=== PATIENT | male | born 1985 | race American Indian/Alaskan Native ===

== ENCOUNTER 2020-09-11 08:44 | Inpatient (IN) | payer OTHER, SELFPAY ==
--- NOTE | 2020-09-11 09:49 | XRay Report ---
CHEST 2 VIEWS INDICATION / CLINICAL INFORMATION: Chest Pain. COMPARISON: None available. FINDINGS: SUPPORT DEVICES: None. HEART / MEDIASTINUM: No significant abnormality. LUNGS / PLEURA: There is patchy airspace opacity in the right lower lung. Small to moderate right ple ural effusion. The left lung is clear. No pneumothorax. ADDITIONAL FINDINGS: No significant additional findings. IMPRESSION: 1. Patchy airspace opacity in the right lower lung worrisome for pneumonia in the appropriate clinica l setting. Small to moderate right pleural effusion. Signer Name: Yadira Ridley MD Signed: 09/11/2020 9:45 AM Workstation Name: [id number]
[2020-09-11 10:24] LABS: Basophils # (Auto) 0.1 K/mm3 (0.0-0.1); Basophils % (Auto) 0.7 % (0.0-1.8); Eosinophils # (Auto) 0.1 K/mm3 (0.0-0.4); Eosinophils % (Auto) 1.2 % (0.0-4.3); Lymphocytes # (Auto) 1.7 K/mm3 (1.2-5.4); Lymphocytes % (Auto) 24.1 % (13.4-35.0); Mean Corpuscular HGB Conc 35 % (32-34); Mean Corpuscular Volume 97 fl (84-94); Monocytes # (Auto) 0.5 K/mm3 (0.0-0.8); Monocytes % (Auto) 6.9 % (0.0-7.3); Platelet Count 117 K/mm3 (140-440); Red Cell Distribution Width 13.6 % (13.2-15.2)
[2020-09-11 10:41] LABS: Albumin 4.1 g/dL (3.9-5); Calcium 8.9 mg/dL (8.4-10.2)
[2020-09-11] MEDS ORDERED: ONDANSETRON 4 MG/2 ML INJ IV ONE (11:11)
[2020-09-11] MEDS ORDERED: FAMOTIDINE 20 MG/2 ML INJ IV ONE (11:11)
[2020-09-11] MEDS ORDERED: AZITHROMYCIN 500 MG in SODIUM CHLORIDE 0.9% 250ML 250 ML IV ONE (11:12)
[2020-09-11] MEDS ORDERED: cefTRIAXone/NS 2 GM/100 ML 2 GM/100 ML BAG IV ONE (11:12)
[2020-09-11] MEDS ORDERED: SODIUM BICARB 8.4% 50 MEQ/50 ML SYRINGE IV ONE (11:17)
[2020-09-11] MEDS ORDERED: INSULIN REGULAR, HUMAN 100 UNIT/ML 3ML VIAL IV ONE (11:17)
[2020-09-11] MEDS ORDERED: DEXTROSE 50% IN WATER (25GM) 50 ML SYRINGE IV ONE (11:17)
--- NOTE | 2020-09-11 11:30 | Emergency Department Report ---
ED General Adult HPI - General Chief complaint: Dyspnea/Respdistress Stated complaint: SOB Time Seen by Provider: 09/11/20 11:06 Source: patient, EMS Mode of arrival: Wheelchair Limitations: No Limitations - History of Present Illness Initial comments: Patient is a 35-year-old F Latvian male with a past medical history of hypertension and renal insufficiency who has a normal creatinine of 6 who is presenting with cough nausea vomiting. Patient states cough is dry nonproductive. Also had vomiting for the last 4 days. Denies diarrhea. States he has some chills and mild body aches as well. Patient has no known exposures to COVID-19. Associated Symptoms: cough, fever/chills, malaise, nausea/vomiting, shortness of breath. denies: confusion, chest pain, diaphoresis, rash, seizure, syncope, weakness - Related Data Allergies Allergy/AdvReac Type Severity Reaction Status Date / Time No Known Allergies Allergy Verified 09/11/20 11:14 ED Review of Systems ROS: Stated complaint: SOB Other details as noted in HPI Comment: All other systems reviewed and negative ED Past Medical Hx - Past Medical History Previous Medical History?: Yes Hx Hypertension: Yes Additional medical history: Chronic Kidney disease. High creatinine - Surgical History Past Surgical History?: No - Social History Smoking Status: Current Some Day Smoker Substance Use Type: Alcohol, Marijuana ED Physical Exam - General Limitations: No Limitations General appearance: alert, in no apparent distress - Head Head exam: Present: atraumatic, normocephalic - Eye Eye exam: Present: normal appearance - ENT ENT exam: Present: normal orophraynx, mucous membranes moist - Neck Neck exam: Present: normal inspection - Respiratory Respiratory exam: Present: rhonchi. Absent: normal lung sounds bilaterally, respiratory distress, wheezes, rales - Cardiovascular Cardiovascular Exam: Present: regular rate, normal rhythm, normal heart sounds. Absent: systolic murmur, diastolic murmur, rubs, gallop - GI/Abdominal GI/Abdominal exam: Present: soft, normal bowel sounds. Absent: distended, tenderness, guarding, rebound - Rectal Rectal exam: Present: deferred - Extremities Exam Extremities exam: Present: normal inspection - Back Exam Back exam: Present: normal inspection - Neurological Exam Neurological exam: Present: alert, oriented X3 - Psychiatric Psychiatric exam: Present: normal affect, normal mood - Skin Skin exam: Present: warm, dry, intact, normal color. Absent: rash ED Course Vital Signs 09/11/20 09:01 Temperature 97.3 F L Pulse Rate 95 H Respiratory 16 Rate Blood Pressure 156/100 O2 Sat by Pulse 98 Oximetry ED Medical Decision Making - Lab Data Result diagrams: 09/11/20 09:22 09/11/20 09:22 Lab Results 09/11/20 09/11/20 Range/Units 09:22 09:22 WBC 7.0 (4.5-11.0) K/mm3 RBC 1.72 L (3.65-5.03) M/mm3 Hgb 5.9 L* (11.8-15.2) gm/dl Hct 16.8 L* (35.5-45.6) % MCV 97 H (84-94) fl MCH 34 H (28-32) pg MCHC 35 H (32-34) % RDW 13.6 (13.2-15.2) % Plt Count 117 L (140-440) K/mm3 Lymph % (Auto) 24.1 (13.4-35.0) % [place] % (Auto) 6.9 (0.0-7.3) % Eos % (Auto) 1.2 (0.0-4.3) % Baso % (Auto) 0.7 (0.0-1.8) % Lymph # (Auto) 1.7 (1.2-5.4) K/mm3 [place] # (Auto) 0.5 (0.0-0.8) K/mm3 Eos # (Auto) 0.1 (0.0-0.4) K/mm3 Baso # (Auto) 0.1 (0.0-0.1) K/mm3 Seg Neutrophils % 67.1 (40.0-70.0) % Seg Neutrophils # 4.7 (1.8-7.7) K/mm3 Sodium 136 L (137-145) mmol/L Potassium 6.0 H (3.6-5.0) mmol/L Chloride 96.8 L (98-107) mmol/L Carbon Dioxide 15 L (22-30) mmol/L Anion Gap 30 mmol/L BUN 109 H (9-20) mg/dL Creatinine 36.1 H (0.8-1.3) mg/dL Estimated GFR 1 ml/min BUN/Creatinine Ratio 3 % Glucose 88 (75-100) mg/dL Calcium 8.9 (8.4-10.2) mg/dL Total Bilirubin 0.50 (0.1-1.2) mg/dL AST 15 (5-40) units/L ALT 6 L (7-56) units/L Alkaline Phosphatase 56 (35-129) units/L Total Protein 8.4 H (6.3-8.2) g/dL Albumin 4.1 (3.9-5) g/dL Albumin/Globulin Ratio 1.0 % Lipase 58 (13-60) units/L - EKG Data -: EKG Interpreted by Md - EKG Data 09/11/20 EKG shows a sinus rhythm rate of 93. [place] is normal intervals are normal. Appears to be peak T waves in the lateral leads. No ST segment elevation or depression. Time of interpretation is 913 - Radiology Data [facility] [address] [place] [address] XRay Report Signed Patient: RJ MILLER MR#: [id number] : 1985 Acct:[id number] Age/Sex: 35 / M ADM Date: 09/11/20 Loc: ED Attending Dr: Ordering Physician: RADHIKA SAUL MD Date of Service: 09/11/20 Procedure(s): XR chest routine 2V Accession Number(s): [id number] cc: ED MD KG Fluoro Time In Minutes: CHEST 2 VIEWS INDICATION / CLINICAL INFORMATION: Chest Pain. COMPARISON: None available. FINDINGS: SUPPORT DEVICES: None. HEART / MEDIASTINUM: No significant abnormality. LUNGS / PLEURA: There is patchy airspace opacity in the right lower lung. Small to moderate right pleural effusion. The left lung is clear. No pneumothorax. ADDITIONAL FINDINGS: No significant additional findings. IMPRESSION: 1. Patchy airspace opacity in the right lower lung worrisome for pneumonia in the appropriate clinical setting. Small to moderate right pleural effusion. Signer Name: Yadira Ridley MD Signed: 09/11/2020 9:45 AM Workstation Name: [id number] - Medical Decision Making Patient is a 35-year-old F Latvian male who is presenting with cough shortness of breath with nausea vomiting. Patient has been unable to keep anything down has had decreased urination over the last several days. Chest x-ray is consist ent with infiltrate and pneumonia. Given the recent COVID-19 pandemic patient will have COVID-19 testing done. Patient was placed in isolation. Patient also has acute worsening of his renal function. Patient is not on dialysis but has a GFR of 1 at this time. . Patient is hemoglobin is under 7 is likely secondary to his renal disease. A unit of packed red blood cells will be given to the pat ient hemoglobin be reassessed. Nephrology has been consulted. Patient will be admitted to the hospitalist service Critical Care Time: Yes (40) Critical care attestation.: If time is entered above; I have spent that time in minutes in the direct care of this critically ill patient, excluding procedure time. ED Disposition Clinical Impression: Hyperkalemia, Lactic acidosis, Suspected COVID-19 virus infection Acute renal failure Qualifiers: Acute renal failure type: unspecified Qualified Code(s): N17.9 - Acute kidney failure, unspecified Pneumonia Qualifiers: Pneumonia type: due to unspecified organism Laterality: right Lung location: lower lobe of lung Qualified Code(s): J18.9 - Pneumonia, unspecified organism Disposition: OP ADMIT IP TO THIS HOSP Is pt being admited?: Yes Does the pt Need Aspirin: No Condition: Stable Instructions: Bacterial Pneumonia (ED) Time of Disposition: 12:16
[2020-09-11 11:34] LABS: Red Blood Count 1.72 M/mm3 (3.65-5.03)
[2020-09-11 11:36] LABS: Hemoglobin 5.9 gm/dl (11.8-15.2)
[2020-09-11 11:37] LABS: Hematocrit 16.8 % (35.5-45.6)
[2020-09-11] MEDS ORDERED: INSULIN REGULAR, HUMAN 100 UNITS/1 ML ONE (11:49)
[2020-09-11] MEDS ORDERED: SODIUM CHLORIDE 0.9% 500 ML 500 ML IV ONE (12:05)
[2020-09-11 12:51] LABS: C-Reactive Protein 0.2 mg/dL (0.00-1.30)
[2020-09-11 13:36] LABS: Bacteria,Urine 1+ /HPF (Negative); Bilirubin,Urine NEG (Negative); Blood,Urine SM (Negative); Color,Urine Yellow (Yellow); Urobilinogen,Urine < 2.0 mg/dL (<2.0)
[2020-09-11 13:37] LABS: Protein,Urine >500 mg/dL (Negative)
--- NOTE | 2020-09-11 14:24 | History and Physical Report ---
History of Present Illness Date of examination: 09/11/20 Date of admission: 09/11/20 12:30 Chief complaint: cough/nausea/vomiting History of present illness: Patient is a 35-year-old black male with a past medical history of hypertension, HIV and CKD with last known creatinine of 6 presenting today with h/p cough nausea vomiting for last few days. Patient states cough is dry and nonproductive. Also had vomiting for the last 4 days but Denies diarrhea. States he is out of his HIV meds for a month. He was hospitalized at [place] early this year and was told he has CKD, but he did not do any further f/u after that. He also endorse some chills and mild body aches as well. Patient has no known exposures to COVID-19. In the ER he noted with Hb 5.9, K 6.0, BUN/Cr - 109/36 CXR showed Patchy airspace opacity in the right lower Nephrology was consulted in the ER, placed on COVID19 protocol and called for admission. Past Medical Hx - Past Medical History Hx Hypertension: Yes Additional medical history: Chronic Kidney disease. HIV - Surgical History Past Surgical History?: No - Family History: GM with h/o HD - Social History Smoking Status: Current Some Day Smoker Substance Use Type: Alcohol, Marijuana Review of System: Constitutional: + fever, + chills, no weight loss Ears, eyes, nose, mouth and throat: no nasal congestion, no nasal discharge, no sinus pressure, no vision change, no red eye. Neck: No neck pain or rigidity. Cardiovascular: No chest pain, no orthopnea, no palpitations, no leg swelling Respiratory: + shortness of breath, no cough, no congestion, no wheezing Gastrointestinal: no abdominal pain, + nausea, +vomiting Genitourinary : no dysuria, no hematuria Musculoskeletal: no joint swelling or muscle ache Integumentary: no rash, no pruritis Neurological: no parathesias, no numbness, no tingling Endocrine: no cold or heat intolerance, no polyuria or polydipsia Hematologic/Lymphatic: no easy bruising, no easy bleeding, no gland swelling Allergic/Immunologic: no urticaria, no angioedema. Medications and Allergies Allergies Allergy/AdvReac Type Severity Reaction Status Date / Time No Known Allergies Allergy Verified 09/11/20 11:14 Home Medications Medication Instructions Recorded Confirmed Last Taken Type Descovy 200-25 mg (Nf) 25 - 200 mg PO DAILY 09/12/20 09/12/20 Unknown History Tivicay 50 mg PO DAILY 09/12/20 09/12/20 Unknown History amLODIPine 10 mg PO DAILY 09/12/20 09/12/20 Unknown History Active Meds: Active Medications Sodium Bicarbonate 150 meq/ (Dextrose) 1,150 mls @ 42 mls/hr IV DIRECT MARIAM Exam - Physical Exam Narrative exam: GENERAL: well-developed and well-nourished black male lying on bed appeared to be in no discomfort. HEENT: Normocephalic. Atraumatic. No conjunctival congestion or icterus. Patient has moist mucous membranes. NECK: Supple. Trachea midline. CHEST/LUNGS: Clear to auscultated bilaterally, breathing nonlabored. No wheezes crackles or rhonchi. HEART/CARDIOVASCULAR: Regular in rate and rhythm. S1 and S2 positive. ABDOMEN: Abdomen is soft, nontender. Patient has normal bowel sounds. SKIN: There is no rash. Warm and dry. NEURO: No focal motor deficit. Follows command. MUSCULOSKELETAL: No joint effusion or tenderness. EXTRIMITY: No edema, no cyanosis or clubbing. PSYCH: Cooperative. - Constitutional Vitals: Temp Pulse Resp BP Pulse Ox 97.3 F L 95 H 16 156/100 98 09/11/20 09:01 09/11/20 09:01 09/11/20 09:01 09/11/20 09:01 09/11/20 09:01 - EENT ENT: no oropharyngeal erythema Results - Labs CBC & Chem 7: 09/12/20 07:34 09/12/20 07:34 Labs: Abnormal lab results 09/11/20 09/11/20 09/11/20 Range/Units 09:22 09:22 11:31 RBC 1.72 L (3.65-5.03) M/mm3 Hgb 5.9 L* (11.8-15.2) gm/dl Hct 16.8 L* (35.5-45.6) % MCV 97 H (84-94) fl MCH 34 H (28-32) pg MCHC 35 H (32-34) % Plt Count 117 L (140-440) K/mm3 D-Dimer (0-234) ng/mlDDU Sodium 136 L (137-145) mmol/L Potassium 6.0 H 6.8 H* (3.6-5.0) mmol/L Chloride 96.8 L (98-107) mmol/L Carbon Dioxide 15 L (22-30) mmol/L BUN 109 H (9-20) mg/dL Creatinine 36.1 H (0.8-1.3) mg/dL Ferritin (30.0-300.0) ng/mL ALT 6 L (7-56) units/L Lactate Dehydrogenase (91-180) units/L Total Protein 8.4 H (6.3-8.2) g/dL 09/11/20 09/11/20 09/11/20 Range/Units 11:58 11:58 11:58 RBC (3.65-5.03) M/mm3 Hgb (11.8-15.2) gm/dl Hct (35.5-45.6) % MCV (84-94) fl MCH (28-32) pg MCHC (32-34) % Plt Count (140-440) K/mm3 D-Dimer 991.44 H (0-234) ng/mlDDU Sodium (137-145) mmol/L Potassium (3.6-5.0) mmol/L Chloride (98-107) mmol/L Carbon Dioxide (22-30) mmol/L BUN (9-20) mg/dL Creatinine (0.8-1.3) mg/dL Ferritin 481.7 H (30.0-300.0) ng/mL ALT (7-56) units/L Lactate Dehydrogenase 345 H (91-180) units/L Total Protein (6.3-8.2) g/dL Assessment and Plan Possible COVID-19 PNA/PUI -Placed on empiric antibiotic, ordered for COVID-19 test -Follow inflammatory markers CXR: 1. Patchy airspace opacity in the right lower lung worrisome for pneumonia in the appropriate clinical setting. Small to moderate right pleural effusion. Acute on chronic renal failure possibly ATN -Consult renal, start on bicarbonate drip, renal ultrasound -Monitor renal function, may need to start on hemodialysis -Follow nephrology recommendation -Avoid nephrotoxin, follow renal function Severe metabolic acidosis -Start on bicarbonate drip, monitor BMP Severe hyperkalemia -Status post hyperkalemia cocktail given in the ER -Repeat potassium still 6.8 - Start on bicarbonate drip, kayexalate EKG shows a sinus rhythm rate of 93. [place] is normal intervals are normal. Appears to be peak T waves in the lateral leads. No ST segment elevation or depression. Severe anemia,Hb 5.9 -Follow H&H, ordered 1 unit of packed RBC in the ER -Order stool for occult blood Nausea vomiting -Could be for hyper uremia and renal failure -Zofran as needed HIV: not on medications for a month - will consult ID DVT prophylaxis, SCD
[2020-09-11] MEDS ORDERED: ONDANSETRON 4 MG/2 ML INJ IV PRN (14:29)
[2020-09-11] MEDS ORDERED: ACETAMINOPHEN 325 MG TAB PO PRN (14:29)
[2020-09-11] MEDS ORDERED: oxyCODONE /ACETAMINOPHEN 5-325MG TAB PO PRN (14:29)
[2020-09-11] MEDS ORDERED: SODIUM POLYSTYRENE 15 GM/60 ML ORAL LIQD PO PRN (14:30)
[2020-09-11] MEDS: cefTRIAXone/NS 2 GM/100 ML 2 GM/100 ML BAG IV SCH (14:35)
--- NOTE | 2020-09-11 14:48 | History and Physical Report ---
History of Present Illness Date of admission: 09/11/20 12:30 Medications and Allergies Allergies Allergy/AdvReac Type Severity Reaction Status Date / Time No Known Allergies Allergy Verified 09/11/20 11:14 Active Meds: Active Medications Acetaminophen (Tylenol) 650 mg PO Q4H PRN PRN Reason: Pain MILD(1-3)/Fever >100.5/MCNEAL Hydralazine HCl (Apresoline) 5 mg IV Q30MIN PRN PRN Reason: Hypertension Sodium Bicarbonate 75 meq/ (Dextrose) 1,075 mls @ 75 mls/hr IV DIRECT MARIAM Ceftriaxone Sodium (Rocephin/Ns 2 Gm/100 Ml) 2 gm in 100 mls @ 100 mls/hr IV Q24H MARIAM Ondansetron HCl (Zofran) 4 mg IV Q8H PRN PRN Reason: Nausea And Vomiting Oxycodone/Acetaminophen (Percocet 5/325) 1 tab PO Q6H PRN PRN Reason: Pain, Moderate (4-6) Sodium Chloride (Sodium Chloride Flush Syringe 10 Ml) 10 ml IV BID MARIAM Sodium Chloride (Sodium Chloride Flush Syringe 10 Ml) 10 ml IV PRN PRN PRN Reason: LINE FLUSH Sodium Polystyrene Sulfonate (Kionex) 60 gm PO ONCE ONE Stop: 09/11/20 15:01 Sodium Polystyrene Sulfonate (Kionex) 15 gm PO Q6HR PRN PRN Reason: Hyperkalemia Exam - Constitutional Vitals: Temp Pulse Resp BP Pulse Ox 97.3 F L 95 H 16 156/100 98 09/11/20 09:01 09/11/20 09:01 09/11/20 09:01 09/11/20 09:01 09/11/20 09:01 Results - Labs CBC & Chem 7: 09/11/20 09:22 09/11/20 11:58 Labs: Abnormal lab results 09/11/20 09/11/20 09/11/20 Range/Units 09:22 09:22 11:31 RBC 1.72 L (3.65-5.03) M/mm3 Hgb 5.9 L* (11.8-15.2) gm/dl Hct 16.8 L* (35.5-45.6) % MCV 97 H (84-94) fl MCH 34 H (28-32) pg MCHC 35 H (32-34) % Plt Count 117 L (140-440) K/mm3 D-Dimer (0-234) ng/mlDDU Sodium 136 L (137-145) mmol/L Potassium 6.0 H 6.8 H* (3.6-5.0) mmol/L Chloride 96.8 L (98-107) mmol/L Carbon Dioxide 15 L (22-30) mmol/L BUN 109 H (9-20) mg/dL Creatinine 36.1 H (0.8-1.3) mg/dL Ferritin (30.0-300.0) ng/mL ALT 6 L (7-56) units/L Lactate Dehydrogenase (91-180) units/L Total Protein 8.4 H (6.3-8.2) g/dL 09/11/20 09/11/20 09/11/20 Range/Units 11:58 11:58 11:58 RBC (3.65-5.03) M/mm3 Hgb (11.8-15.2) gm/dl Hct (35.5-45.6) % MCV (84-94) fl MCH (28-32) pg MCHC (32-34) % Plt Count (140-440) K/mm3 D-Dimer 991.44 H (0-234) ng/mlDDU Sodium (137-145) mmol/L Potassium (3.6-5.0) mmol/L Chloride (98-107) mmol/L Carbon Dioxide (22-30) mmol/L BUN (9-20) mg/dL Creatinine (0.8-1.3) mg/dL Ferritin 481.7 H (30.0-300.0) ng/mL ALT (7-56) units/L Lactate Dehydrogenase 345 H (91-180) units/L Total Protein (6.3-8.2) g/dL
[2020-09-11] MEDS ORDERED: SODIUM BICARBONATE 150 MEQ in DEXTROSE 5% IN WATER 1,000 ML IV SCH (15:00)
[2020-09-11] MEDS ORDERED: SODIUM POLYSTYRENE 15 GM/60 ML ORAL LIQD PO ONE (15:00)
[2020-09-11] MEDS ORDERED: SODIUM BICARBONATE 75 MEQ in DEXTROSE 5% IN WATER 1,000 ML IV SCH (15:00)
[2020-09-11] MEDS ORDERED: HYDROmorphone 1 MG/1 ML INJ IV ONE (15:10)
[2020-09-11] MEDS ORDERED: SODIUM POLYSTYRENE 15 GM/60 ML ORAL LIQD ONE (15:14)
[2020-09-11] MEDS ORDERED: HYDROmorphone 1 MG/1 ML INJ ONE (15:15)
--- NOTE | 2020-09-11 16:03 | Ultrasound Report ---
ULTRASOUND RENAL INDICATION: acute renal failure. COMPARISON: No relevant prior imaging study available. FINDINGS: RIGHT KIDNEY: Size: 9.4 cm. Echogenicity: Increased. Cortical thickness: Normal. Stones: None. Hydronephrosis: None. Cyst or mass: None. LEFT KIDNEY: Size: 9 cm. Echogenicity: Increased. Cortical thickness: Normal. Stones: None. Hydronephrosis: None. Cyst or mass: There is a 2.3 x 1.7 x 1.4 cm mixed echogenicity nodule in the upper pole of the left k idney. Urinary Bladder: No significant abnormality. Free Fluid: None. Additional Findings: None. IMPRESSION 1. Kidneys are increased in echogenicity characteristic of medical renal disease. 2. There is a mixed echogenicity nodule in the left kidney measuring up to 2.3 cm in diameter. This m ay represent a complex or hemorrhagic cyst. This could represent a fat-containing lesion such as no omyolipoma. This can be further evaluated with CT imaging on a nonemergent basis.. Signer Name: Rad Rodríguez MD Signed: 09/11/2020 3:59 PM Workstation Name: [id number]
--- NOTE | 2020-09-11 16:38 | Consultation ---
History of Present Illness - Reason for Consult Consult date: 09/11/20 acute renal failure, chronic renal failure - History of Present Illness This is a 35 year old man with CKD, HTN who presents with vomiting, weakness. Found to have creatinine 36. Per patient, follows with Dr. Norbert Treadwell at [place] [facility] but has not seen him in a long time. Notes that his last creatinine was around a 6 or 7, and CKD was thought to be due to HTN. No biopsy done per patient. For past 3 days, he notes poor appetite, cough, and vomiting which is what led him to ED. Denies any urinary abnormalities, dyspnea, edema, headaches. He states that he just feels like he has a bad cold. Past History Past Medical History: hypertension, other (CKD) Past Surgical History: No surgical history Social history: no significant social history Family history: no significant family history Medications and Allergies Allergies Allergy/AdvReac Type Severity Reaction Status Date / Time No Known Allergies Allergy Verified 09/11/20 11:14 Active Meds: Active Medications Acetaminophen (Tylenol) 650 mg PO Q4H PRN PRN Reason: Pain MILD(1-3)/Fever >100.5/MCNEAL Hydralazine HCl (Apresoline) 5 mg IV Q30MIN PRN PRN Reason: Hypertension Sodium Bicarbonate 75 meq/ (Dextrose) 1,075 mls @ 75 mls/hr IV DIRECT MARIAM Ceftriaxone Sodium (Rocephin/Ns 2 Gm/100 Ml) 2 gm in 100 mls @ 100 mls/hr IV Q24H [facility] Last Admin: 09/11/20 14:35 Dose: 100 mls/hr Documented by: Ondansetron HCl (Zofran) 4 mg IV Q8H PRN PRN Reason: Nausea And Vomiting Oxycodone/Acetaminophen (Percocet 5/325) 1 tab PO Q6H PRN PRN Reason: Pain, Moderate (4-6) Pantoprazole Sodium (Protonix) 40 mg IV BID MARIAM Sodium Chloride (Sodium Chloride Flush Syringe 10 Ml) 10 ml IV BID [facility] Last Admin: 09/11/20 15:15 Dose: 10 ml Documented by: Sodium Chloride (Sodium Chloride Flush Syringe 10 Ml) 10 ml IV PRN PRN PRN Reason: LINE FLUSH Sodium Polystyrene Sulfonate (Kionex) 15 gm PO Q6HR PRN PRN Reason: Hyperkalemia Review of Systems All systems: negative (as per HPI) Exam - Vital Signs Vital signs: Vital Signs Temp Pulse Resp BP Pulse Ox 97.3 F L 95 H 16 156/100 98 09/11/20 09:01 09/11/20 09:01 09/11/20 09:01 09/11/20 09:01 09/11/20 09:01 - Physical Exam Narrative exam: Constitutional: no acute distress Head: NC/AT Neck: supple Lungs: clear to auscultation CV: RRR, no M/R/G Abdomen: soft, non-tender, bowel sounds present Back: nontender Extremities: no edema, pulses WNL Skin: intact Neuro: no focal deficits, alert and oriented x4 Results - Lab Results 09/11/20 09:22 09/11/20 11:58 Most recent lab results Calcium 8.9 mg/dL (8.4-10.2) 09/11/20 09:22 Assessment and Plan This is a 35 year old man who presents with MARNI, electrolyte abnormalities. # MARNI on CKD 5: creatinine very high at 36. Patient clinically appears fairly well, but discussed at length today (>30 minutes) that it is very likely that he has progressed to ESRD/kidney failure given his reported poor baseline, despite any acute illnesses that may have lead to tubular injury. Discussed need for HD at length, but agreed that we shall try medical management with IVF, blood tranfusions, etc and perform serologic workup - serologies ordered, urinalysis reviewed which shows blood and protein. Qu antify UP/C - ultrasound reviewed, cyst noted, would recommend CT for further evaluation if able while inpatient. No acute obstruction noted - daily labs - renally dose meds - avoid nephrotoxins - renal diet - hold HD for now, but suspect will need in next 24 hours, will consult vascular when needed for access placement. Did discuss need for dialysis access with patient, patient would like to hold off for now and allow for supportive care - consider renal biopsy, but suspect would be of less utility given severity of CKD progression # Anemia: last hemoglobin 5.9, PRBCs today, will likely need ESAs, iron # Acidosis: likely in renal failure, start HCO3 gtt # Hyperkalemia: s/p medical measures, agree with HCO3 gtt. HD if not improving. No EKG changes # HTN: BP reasonable # Secondary Hyperparathyroidism: PTH 580, consistent with ESRD. Check phos, start binders as needed # Possible COVID-19 PNA/PUI: care per primary
[2020-09-11] MEDS ORDERED: PANTOPRAZOLE 40 MG INJ IV SCH (22:00)
[2020-09-11] MEDS ORDERED: cefTRIAXone/NS 1 GM/50 ML 1 GM/50 ML BAG IV SCH (22:00)
[2020-09-12] MEDS ORDERED: SODIUM CHLORIDE 0.9% 250ML 250 ML IV ONE (00:29)
[2020-09-12] MEDS ORDERED: SODIUM CHLORIDE 0.9% 250ML 250 ML ONE (00:43)
[2020-09-12 04:37] LABS: Creatinine,Urine 123.7 mg/dL (0.1-20.0)
[2020-09-12 04:50] LABS: Protein/Creatinine Ratio,Urine 4.8
[2020-09-12 09:38] LABS: Calcium 8.6 mg/dL (8.4-10.2)
[2020-09-12] MEDS: PANTOPRAZOLE 40 MG INJ IV SCH ×2 (09:38→22:14)
[2020-09-12 09:39] LABS: Basophils % (Auto) 0.6 % (0.0-1.8); Eosinophils # (Auto) 0.1 K/mm3 (0.0-0.4); Eosinophils % (Auto) 1.7 % (0.0-4.3); Hemoglobin 6.7 gm/dl (11.8-15.2); Lymphocytes # (Auto) 1.5 K/mm3 (1.2-5.4); Lymphocytes % (Auto) 24.4 % (13.4-35.0); Mean Corpuscular HGB Conc 34 % (32-34); Mean Corpuscular Volume 98 fl (84-94); Monocytes # (Auto) 0.6 K/mm3 (0.0-0.8); Monocytes % (Auto) 9.1 % (0.0-7.3); Platelet Count 102 K/mm3 (140-440); Red Blood Count 1.98 M/mm3 (3.65-5.03); Red Cell Distribution Width 14.4 % (13.2-15.2)
--- NOTE | 2020-09-12 09:51 | Progress Note ---
Assessment and Plan This is a 35 year old man who presents with MARNI, electrolyte abnormalities. # MARNI on CKD 5: creatinine very high at 36, 34 this AM. Patient clinically appears fairly well, but discussed at length again today face to face (>30 minutes) that it is very likely that he has progressed to ESRD/kidney failure given his reported poor baseline, despite any acute illnesses that may have lead to tubular injury. Discussed need for HD at length, but agreed that we shall continue medical management with IVF, blood tranfusions, etc and perform serologic workup - serologies ordered, urinalysis reviewed which shows blood and protein. Notable proteinuria of 4.8g - ultrasound reviewed, cyst noted, will check CT for further evaluation given he maturia. No acute obstruction noted - daily labs - renally dose meds - avoid nephrotoxins - renal diet - hold HD for now, but suspect will need in next 24 hours, will consult vascular when needed for access placement. Did discuss need for dialysis access with patient, patient would like to hold off for now and allow for supportive care - consider renal biopsy, but suspect would be of less utility given severity of CKD progression # Anemia: last hemoglobin 5.9->6.7, s/p 1u PRBCs, will likely need ESAs, iron # Hematuria: visible hematuria noted today, will check CT as noted above, will need urology consult # Acidosis: likely in renal failure, improving on HCO3 # Hyperkalemia: s/p medical measures, stable. HD if not improving. No EKG changes # HTN: BP reasonable # Secondary Hyperparathyroidism: PTH 580, P high, consistent with ESRD. Will start binders as needed, renvela ordered # Possible COVID-19 PNA/PUI: care per primary Subjective Date of service: 09/12/20 Interval history: Patient noting bleeding from penis this AM, has never had this happen before. Notes that after blood transfusion began feeling "off" but better now Objective - Exam Narrative Exam: Constitutional: no acute distress Head: NC/AT Neck: supple Lungs: clear to auscultation CV: RRR, no M/R/G Abdomen: soft, non-tender, bowel sounds present Back: nontender Extremities: no edema, pulses WNL Skin: intact Neuro: no focal deficits, alert and oriented x4 - Vital Signs Vital signs: Vital Signs - 12hr 09/11/20 09/12/20 09/12/20 23:13 02:20 02:35 Temperature 98.0 F 97.5 F L 97.4 F L Pulse Rate 96 H 98 H 91 H Respiratory 20 18 18 Rate Blood Pressure 150/96 154/102 157/101 O2 Sat by Pulse 96 97 99 Oximetry 09/12/20 09/12/20 09/12/20 03:05 03:35 04:05 Temperature 97.5 F L 97.5 F L 97.6 F Pulse Rate 91 H 91 H 84 Respiratory 18 18 18 Rate Blood Pressure 154/99 158/91 155/100 O2 Sat by Pulse 99 99 99 Oximetry 09/12/20 09/12/20 09/12/20 04:35 05:05 05:35 Temperature 97.5 F L 97.6 F 97.6 F Pulse Rate 90 89 90 Respiratory 18 18 19 Rate Blood Pressure 155/99 147/97 150/90 O2 Sat by Pulse 99 99 99 Oximetry - Lab 09/12/20 07:34 09/12/20 07:34 Most recent lab results Calcium 8.6 mg/dL (8.4-10.2) 09/12/20 07:34 Phosphorus 5.80 mg/dL (2.5-4.5) H 09/12/20 07:34 Urine Creatinine 123.7 mg/dL (0.1-20.0) H 09/12/20 03:30 Urine Total Protein 594 mg/dL (5-11.8) H 09/12/20 03:30 Medications & Allergies - Medications Allergies/Adverse Reactions: Allergies No Known Allergies Allergy (Verified 09/11/20 11:14) Home Medications: Home Medications Medication Instructions Recorded Confirmed Last Taken Type Descovy 200-25 mg (Nf) 25 - 200 mg PO DAILY 09/12/20 09/12/20 Unknown History Tivicay 50 mg PO DAILY 09/12/20 09/12/20 Unknown History amLODIPine 10 mg PO DAILY 09/12/20 09/12/20 Unknown History Active Medications: Generic Name Dose Route Start Last Admin Trade Name Freq PRN Reason Stop Dose Admin Acetaminophen 650 mg 09/11/20 14:29 Tylenol PO Q4H PRN Pain MILD(1-3)/Fever >100.5/MCNEAL Hydralazine HCl 5 mg 09/11/20 14:30 Apresoline IV Q30MIN PRN Hypertension Sodium Bicarbonate 75 meq/ 1,075 mls @ 75 mls/hr 09/11/20 15:00 Dextrose IV DIRECT MARIAM Ceftriaxone Sodium 2 gm in 100 mls @ 100 mls/hr 09/11/20 15:00 09/11/20 14:35 Rocephin/Ns 2 Gm/100 Ml IV 100 mls/hr Q24H MARIAM Administration Ondansetron HCl 4 mg 09/11/20 14:29 Zofran IV Q8H PRN Nausea And Vomiting Oxycodone/Acetaminophen 1 tab 09/11/20 14:29 Percocet 5/325 PO Q6H PRN Pain, Moderate (4-6) Pantoprazole Sodium 40 mg 09/13/20 10:00 Protonix PO BID MARIAM Pantoprazole Sodium 40 mg 09/12/20 10:00 09/12/20 09:38 Protonix IV 09/12/20 23:59 40 mg BID MARIAM Administration Sodium Chloride 10 ml 09/11/20 15:00 09/12/20 09:38 Sodium Chloride Flush Syringe 10 Ml IV 10 ml BID MARIAM Administration Sodium Chloride 10 ml 09/11/20 14:29 Sodium Chloride Flush Syringe 10 Ml IV PRN PRN LINE FLUSH Sodium Polystyrene Sulfonate 15 gm 09/11/20 14:30 Kionex PO Q6HR PRN Hyperkalemia
[2020-09-12 09:54] LABS: Hematocrit 19.4 % (35.5-45.6)
[2020-09-12] MEDS ORDERED: SODIUM CHLORIDE 0.9% 500 ML 500 ML IV NR (12:07)
--- NOTE | 2020-09-12 12:43 | Cat Scan Report ---
CT ABDOMEN AND PELVIS WITHOUT CONTRAST INDICATION / CLINICAL INFORMATION: cyst vs mass noted on ultrasound, hematuria. TECHNIQUE: Axial CT images were obtained through the abdomen and pelvis without IV contrast. All CT scans at is location are performed using CT dose reduction for ALARA by means of automated exposure control. COMPARISON: None available. FINDINGS: LOWER CHEST: There are groundglass densities and areas of airspace consolidation in the lower chest. There are small bilateral pleural effusions right greater than left. LIVER: No acute abnormality. GALLBLADDER: Gallbladder appears contracted BILE DUCTS: No significant abnormality. PANCREAS: No significant abnormality. SPLEEN: No significant abnormality. ADRENALS: No significant abnormality. RIGHT KIDNEY and URETER: No significant abnormality. LEFT KIDNEY and URETER: The lesion seen in the upper pole the left kidney on the prior study is not w ell seen on this exam. There are 2 small hypodensities noted in the posterior aspect of the left kidn ey which likely correlate to the abnormality seen on ultrasound. This could represent complex partial ly hemorrhagic cyst. This does not have fat density within it and is not a typical angiomyolipoma. STOMACH and SMALL BOWEL: No significant abnormality. COLON: 1 APPENDIX: Not visualized PERITONEUM: There is a small amount of free fluid in the pelvis. No free air. No fluid collection. Th ere is mild edema in the mesentery LYMPH NODES: No significant adenopathy. AORTA and ARTERIES: No significant abnormality. IVC and VEINS: No significant abnormality. URINARY BLADDER: No significant abnormality. REPRODUCTIVE ORGANS: No significant abnormality. ADDITIONAL FINDINGS: None. SKELETAL SYSTEM: No acute abnormality IMPRESSION: 1. There are subtle hypodensities in the left kidney which appear to correspond to the abnormality se en on ultrasound. These are nonspecific and may represent complex cyst. This is not atypical angiomyo lipoma. 2. There is edema in the mesentery and some fluid along the pararenal fascia and there is some free f luid in the pelvis. This is nonspecific 3. There are small bilateral pleural effusions right greater than left. 4. There is groundglass opacity noted in the lung bases with areas of airspace consolidation which co uld represent edema and atelectasis. Possibility of pneumonia including atypical pneumonia is include d in the differential diagnosis. Signer Name: Rad Rodríguez MD Signed: 09/12/2020 12:38 PM Workstation Name: [id number]
[2020-09-12] MEDS: amLODIPine 10 MG TAB PO SCH (13:48)
[2020-09-12] MEDS: SEVELAMER CARBONATE 800 MG TAB PO SCH ×2 (13:48→21:05)
[2020-09-12] MEDS: cefTRIAXone/NS 2 GM/100 ML 2 GM/100 ML BAG IV SCH (14:01)
--- NOTE | 2020-09-12 14:15 | Progress Note ---
Assessment and Plan - Patient Problems (1) End stage renal disease Current Visit: Yes Status: Acute Plan to address problem: Dialysis as per renal team, strict I's/O, monitor urine output every shift, avoid nephrotoxic agents, Vas-Cath consult and initiation of dialysis as per nephrology team. (2) Metabolic acidosis Current Visit: Yes Status: Acute Plan to address problem: Continue current therapy. Dialysis as per renal team. (3) Hyperkalemia Current Visit: Yes Status: Acute Plan to address problem: Supportive care, no EKG changes, no muscular weakness, (4) Suspected COVID-19 virus infection Current Visit: Yes Status: Acute Plan to address problem: Coronavirus negative. Discontinue COVID-19 protocol. 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 Continue current therapy. O utpatient infectious disease service follow-up. (6) DVT prophylaxis Current Visit: Yes Status: Acute Plan to address problem: SCD to bilateral lower extremities while in bed, patient is ambulatory History Interval history: 35-year-old Male hospital day 2 with metabolic acidosis, acute kidney injury/end-stage renal disease, HIV, hyperkalemia. Patient pending initiation of hemodialysis as per renal team. Patient not currently responding with significant improvement in renal function with current therapy. Patient coronavirus PCR is negative. Patient denies fever/pain overnight. No reported nursing events. Hospitalist Physical - Constitutional Vitals: Temp Pulse Resp BP Pulse Ox 98.2 F 87 20 151/100 96 09/12/20 12:30 09/12/20 12:30 09/12/20 12:30 09/12/20 13:48 09/12/20 12:30 General appearance: Present: mild distress - EENT Eyes: Present: PERRL ENT: hearing intact - Neck Neck: Present: supple - Respiratory Respiratory effort: normal Respiratory: bilateral: CTA - Cardiovascular Rhythm: regular Heart Sounds: Present: S1 & S2 - Extremities Extremities: no ischemia Peripheral Pulses: within normal limits - Abdominal General gastrointestinal: soft, non-tender, non-distended - Integumentary Integumentary: Present: clear, dry - Psychiatric Psychiatric: appropriate mood/affect, cooperative Results - Labs CBC & Chem 7: 09/12/20 07:34 09/12/20 07:34 Labs: Laboratory Last Values WBC 6.3 K/mm3 (4.5-11.0) 09/12/20 07:34 RBC 1.98 M/mm3 (3.65-5.03) L 09/12/20 07:34 Hgb 6.7 gm/dl (11.8-15.2) L 09/12/20 07:34 Hct 19.4 % (35.5-45.6) L* 09/12/20 07:34 MCV 98 fl (84-94) H 09/12/20 07:34 MCH 34 pg (28-32) H 09/12/20 07:34 MCHC 34 % (32-34) 09/12/20 07:34 RDW 14.4 % (13.2-15.2) 09/12/20 07:34 Plt Count 102 K/mm3 (140-440) L 09/12/20 07:34 Lymph % (Auto) 24.4 % (13.4-35.0) 09/12/20 07:34 Kaufman % (Auto) 9.1 % (0.0-7.3) H 09/12/20 07:34 Eos % (Auto) 1.7 % (0.0-4.3) 09/12/20 07:34 Baso % (Auto) 0.6 % (0.0-1.8) 09/12/20 07:34 Lymph # (Auto) 1.5 K/mm3 (1.2-5.4) 09/12/20 07:34 Kaufman # (Auto) 0.6 K/mm3 (0.0-0.8) 09/12/20 07:34 Eos # (Auto) 0.1 K/mm3 (0.0-0.4) 09/12/20 07:34 Baso # (Auto) 0.0 K/mm3 (0.0-0.1) 09/12/20 07:34 Seg Neutrophils % 64.2 % (40.0-70.0) 09/12/20 07:34 Seg Neutrophils # 4.1 K/mm3 (1.8-7.7) 09/12/20 07:34 D-Dimer 991.44 ng/mlDDU (0-234) H 09/11/20 11:58 Sodium 137 mmol/L (137-145) 09/12/20 07:34 Potassium 5.5 mmol/L (3.6-5.0) H 09/12/20 07:34 Chloride 95.6 mmol/L (98-107) L 09/12/20 07:34 Carbon Dioxide 20 mmol/L (22-30) L 09/12/20 07:34 Anion Gap 27 mmol/L 09/12/20 07:34 BUN 101 mg/dL (9-20) H 09/12/20 07:34 Creatinine 34.8 mg/dL (0.8-1.3) H 09/12/20 07:34 Estimated GFR 2 ml/min 09/12/20 07:34 BUN/Creatinine Ratio 3 % 09/12/20 07:34 Glucose 90 mg/dL (75-100) 09/12/20 07:34 Calcium 8.6 mg/dL (8.4-10.2) 09/12/20 07:34 Phosphorus 5.80 mg/dL (2.5-4.5) H 09/12/20 07:34 Ferritin 481.7 ng/mL (30.0-300.0) H 09/11/20 11:58 Total Bilirubin 0.50 mg/dL (0.1-1.2) 09/11/20 09:22 AST 15 units/L (5-40) 09/11/20 09:22 ALT 6 units/L (7-56) L 09/11/20 09:22 Alkaline Phosphatase 56 units/L (35-129) 09/11/20 09:22 Lactate Dehydrogenase 345 units/L (91-180) H 09/11/20 11:58 C-Reactive Protein 0.20 mg/dL (0.00-1.30) 09/11/20 11:58 Total Protein 8.4 g/dL (6.3-8.2) H 09/11/20 09:22 Albumin 4.1 g/dL (3.9-5) 09/11/20 09:22 Albumin/Globulin Ratio 1.0 % 09/11/20 09:22 Lipase 58 units/L (13-60) 09/11/20 09:22 Procalcitonin 0.12 ng/mL (<0.15) 09/11/20 11:31 PTH Intact 538.5 pg/mL (15-65) H 09/11/20 19:01 Urine Color Yellow (Yellow) 09/11/20 12:25 Urine Turbidity Clear (Clear) 09/11/20 12:25 Urine pH 7.0 (5.0-7.0) 09/11/20 12:25 Ur Specific Paloma 1.013 (1.003-1.030) 09/11/20 12:25 Urine Protein >500 mg/dL (Negative) 09/11/20 12:25 Urine Glucose (UA) 50 mg/dL (Negative) 09/11/20 12:25 Urine Ketones Neg mg/dL (Negative) 09/11/20 12:25 Urine Blood Sm (Negative) 09/11/20 12:25 Urine Nitrite Neg (Negative) 09/11/20 12:25 Urine Bilirubin Neg (Negative) 09/11/20 12:25 Urine Urobilinogen < 2.0 mg/dL (<2.0) 09/11/20 12:25 Ur Leukocyte Esterase Neg (Negative) 09/11/20 12:25 Urine WBC (Auto) 1.0 /HPF (0.0-6.0) 09/11/20 12:25 Urine RBC (Auto) 9.0 /HPF (0.0-6.0) 09/11/20 12:25 U Epithel Cells (Auto) < 1.0 /HPF (0-13.0) 09/11/20 12:25 Urine Bacteria (Auto) 1+ /HPF (Negative) 09/11/20 12:25 Urine Creatinine 123.7 mg/dL (0.1-20.0) H 09/12/20 03:30 Protein/Creatinin Ratio 4.80 09/12/20 03:30 Urine Total Protein 594 mg/dL (5-11.8) H 09/12/20 03:30 Coronavirus (PCR) Negative (Negative) 09/12/20 Unknown Blood Type A POSITIVE 09/11/20 19: Antibody Screen Negative 09/11/20 19: Crossmatch See Detail 09/11/20 19: Microbiology: Microbiology 09/11/20 Unknown Peripheral/Venous Blood Culture - Preliminary NO GROWTH AFTER 24 HOURS 09/11/20 Unknown Peripheral/Venous Blood Culture - Preliminary NO GROWTH AFTER 24 HOURS Montoya/IV: Voiding Method Toilet IV Catheter Type [Right INT / Saline Lock Forearm] Active Medications - Current Medications Current Medications: Generic Name Dose Route Start Last Admin Trade Name Chuyq PRN Reason Stop Dose Admin Acetaminophen 650 mg 09/11/20 14:29 Tylenol PO Q4H PRN Pain MILD(1-3)/Fever >100.5/MCNEAL Amlodipine Besylate 10 mg 09/12/20 14:00 09/12/20 13:48 Amlodipine PO 10 mg QDAY MARIAM Administration Hydralazine HCl 5 mg 09/11/20 14:30 Apresoline IV Q30MIN PRN Hypertension Ceftriaxone Sodium 2 gm in 100 mls @ 100 mls/hr 09/11/20 15:00 09/12/20 14:01 Rocephin/Ns 2 Gm/100 Ml IV 100 mls/hr Q24H MARIAM Administration Sodium Chloride 500 mls @ 0 mls/hr 09/12/20 12:07 Nacl 0.9% 500 Ml IV 09/12/20 23:59 ONCE NR As Directed Ondansetron HCl 4 mg 09/11/20 14:29 Zofran IV Q8H PRN Nausea And Vomiting Oxycodone/Acetaminophen 1 tab 09/11/20 14:29 Percocet 5/325 PO Q6H PRN Pain, Moderate (4-6) Pantoprazole Sodium 40 mg 09/13/20 10:00 Protonix PO BID MARIAM Pantoprazole Sodium 40 mg 09/12/20 10:00 09/12/20 09:38 Protonix IV 09/12/20 23:59 40 mg BID MARIAM Administration Sevelamer Carbonate 2,400 mg 09/12/20 14:00 09/12/20 13:48 Renvela PO 2,400 mg TID MARIAM Administration Sodium Chloride 10 ml 09/11/20 15:00 09/12/20 09:38 Sodium Chloride Flush Syringe 10 Ml IV 10 ml BID MARIAM Administration Sodium Chloride 10 ml 09/11/20 14:29 Sodium Chloride Flush Syringe 10 Ml IV PRN PRN LINE FLUSH Sodium Polystyrene Sulfonate 15 gm 09/11/20 14:30 Kionex PO Q6HR PRN Hyperkalemia
--- NOTE | 2020-09-12 14:44 | Consultation ---
History of Present Illness - Reason for Consult Consult date: 09/12/20 HIV Requesting physician: STEVE CASAS - History of Present Illness The patient is a 35-year-old male with CKD, HIV, hypertension was admitted to the hospital with cough, nausea and vomiting. He was noted to have significant progression of his renal disease with a creatinine of 34, BUN 101. Has been seen by nephrology with plans to initiate dialysis. With regards to his HIV, patient was diagnosed about 2 years ago and started treatment with Descovy + dolutegravir at [facility], was very compliant with treatment but does not remember his last viral load or CD4 count. In June 06, patient lost his job and his insurance and hence has not been taking any of his meds. He was not aware of any of the free clinic options. Currently, he is feeling a little better. He tested negative for COVID-19. Review of Systems: General: no fevers,chills or rigors HEENT: no new visual disturbance Respiratory: No cough, sputum, hemoptysis or shortness of breath Cardiovascular: No chest pain, syncope Gastrointestinal: + nausea, vomiting. Genitourinary: No dysuria or hematuria Musculoskeletal: No new or worsening neck pain or back pain Neurologic: No headaches, seizures Hematologic: No easy bruising or bleeding Endocrine: No night sweats or acute weight loss Skin: negative for rash, jaundice Psychiatric: No suicidal or homicidal ideation Past History Past Medical History: hypertension, other (CKD) Past Surgical History: No surgical history Social history: no significant social history Family history: no significant family history Medications and Allergies Allergies Allergy/AdvReac Type Severity Reaction Status Date / Time No Known Allergies Allergy Verified 09/11/20 11:14 Home Medications Medication Instructions Recorded Confirmed Last Taken Type Descovy 200-25 mg (Nf) 25 - 200 mg PO DAILY 09/12/20 09/12/20 Unknown History Tivicay 50 mg PO DAILY 09/12/20 09/12/20 Unknown History amLODIPine 10 mg PO DAILY 09/12/20 09/12/20 Unknown History Active Meds: Active Medications Acetaminophen (Tylenol) 650 mg PO Q4H PRN PRN Reason: Pain MILD(1-3)/Fever >100.5/MCNEAL Amlodipine Besylate (Amlodipine) 10 mg PO QDAY MARIAM Last Admin: 09/12/20 13:48 Dose: 10 mg Documented by: Hydralazine HCl (Apresoline) 5 mg IV Q30MIN PRN PRN Reason: Hypertension Ceftriaxone Sodium (Rocephin/Ns 2 Gm/100 Ml) 2 gm in 100 mls @ 100 mls/hr IV Q24H [facility] Last Admin: 09/12/20 14:01 Dose: 100 mls/hr Documented by: Sodium Chloride (Nacl 0.9% 500 Ml) 500 mls @ 0 mls/hr IV ONCE NR Stop: 09/12/20 23:59 Ondansetron HCl (Zofran) 4 mg IV Q8H PRN PRN Reason: Nausea And Vomiting Oxycodone/Acetaminophen (Percocet 5/325) 1 tab PO Q6H PRN PRN Reason: Pain, Moderate (4-6) Pantoprazole Sodium (Protonix) 40 mg PO BID [facility] Pantoprazole Sodium (Protonix) 40 mg IV BID [facility] Stop: 09/12/20 23:59 Last Admin: 09/12/20 09:38 Dose: 40 mg Documented by: Sevelamer Carbonate (Renvela) 2,400 mg PO TID [facility] Last Admin: 09/12/20 13:48 Dose: 2,400 mg Documented by: Sodium Chloride (Sodium Chloride Flush Syringe 10 Ml) 10 ml IV BID [facility] Last Admin: 09/12/20 09:38 Dose: 10 ml Documented by: Sodium Chloride (Sodium Chloride Flush Syringe 10 Ml) 10 ml IV PRN PRN PRN Reason: LINE FLUSH Sodium Polystyrene Sulfonate (Kionex) 15 gm PO Q6HR PRN PRN Reason: Hyperkalemia Physical Examination - Physical Exam Narrative exam: Physical Exam: Constitutional: Alert, cooperative. No acute distress Head, Ears, Nose: Normocephalic, atraumatic. External ears, nose normal Eyes: Conjunctivae/corneas clear. No icterus. No ptosis. Neck: Supple, no meningeal signs Oral: dentition fair, no thrush Cardiovascular: S1, S2 normal. Respiratory: Good air entry, clear to auscultation bilaterally GI: Soft, non-tender; bowel sounds normal. No peritoneal signs Musculoskeletal: No pedal edema, no cyanosis. Skin: No rash or abscess Hem/Lymphatic: No palpable cervical or supraclavicular nodes. No lymphangitis Psych: Mood ok. Affect normal Neurological: Awake, alert, oriented. No gross abnormality - Constitutional Vitals: Vital Signs Temp Pulse Resp BP Pulse Ox 98.2 F 87 20 151/100 96 09/12/20 12:30 09/12/20 12:30 09/12/20 12:30 09/12/20 13:48 09/12/20 12:30 Temperature -Last 24 Hours Temperature 98.2 F Temperature 97.6 F Temperature 97.6 F Temperature 97.5 F Temperature 97.6 F Temperature 97.5 F Temperature 97.5 F Temperature 97.4 F Temperature 97.5 F Temperature 98.0 F Temperature 97.0 F Results - Labs CBC & Chem 7: 09/12/20 07:34 09/12/20 07:34 Labs: Abnormal lab results 09/11/20 09/11/20 09/12/20 Range/Units 19:01 19:01 03:30 RBC (3.65-5.03) M/mm3 Hgb (11.8-15.2) gm/dl Hct (35.5-45.6) % MCV (84-94) fl MCH (28-32) pg Plt Count (140-440) K/mm3 Hartley % (Auto) (0.0-7.3) % Potassium (3.6-5.0) mmol/L Chloride (98-107) mmol/L Carbon Dioxide (22-30) mmol/L BUN (9-20) mg/dL Creatinine (0.8-1.3) mg/dL Phosphorus (2.5-4.5) mg/dL PTH Intact 538.5 H (15-65) pg/mL Urine Creatinine 123.7 H (0.1-20.0) mg/dL Urine Total Protein 594 H (5-11.8) mg/dL Crossmatch See Detail 09/12/20 09/12/20 09/12/20 Range/Units 07:34 07:34 07:34 RBC 1.98 L (3.65-5.03) M/mm3 Hgb 6.7 L (11.8-15.2) gm/dl Hct 19.4 L* (35.5-45.6) % MCV 98 H (84-94) fl MCH 34 H (28-32) pg Plt Count 102 L (140-440) K/mm3 Hartley % (Auto) 9.1 H (0.0-7.3) % Potassium 5.5 H (3.6-5.0) mmol/L Chloride 95.6 L (98-107) mmol/L Carbon Dioxide 20 L (22-30) mmol/L BUN 101 H (9-20) mg/dL Creatinine 34.8 H (0.8-1.3) mg/dL Phosphorus 5.80 H (2.5-4.5) mg/dL PTH Intact (15-65) pg/mL Urine Creatinine (0.1-20.0) mg/dL Urine Total Protein (5-11.8) mg/dL Crossmatch - Imaging and Cardiology Chest x-ray: report reviewed, image reviewed Assessment and Plan Cultures: 09/11/2020 blood culture: No growth COVID-19 PCR: Negative A/P: 35-year-old male with CKD, HIV, hypertension : #HIV: patient was diagnosed about 2 years ago and started treatment with Descovy + dolutegravir at [facility], was very compliant with treatment but does not remember his last viral load or CD4 count. In June 2020, patient lost his job and his insurance and hence has not been taking any of his meds. He was not aware of any of the free clinic options. #RLL pneumonitis: ?asp pneumonitis from vomiting. No fever or leucocytosis. #ESRD / progression of CKD: ?HIVAN. Proteinuria +. Nephrology following. Planned to initiate dialysis. Patient reports having CKD for at least >2 years. Given progression to ESRD, initiation of ART as inpatient unlikely to prevent need for dialysis. #Anemia: probablysecondary to ESRD Recs: -discussed options, patient interested in following up with [facility] [place] to resume ART -Ceftriaxone discontinued, no fever or leucocytosis. -HIV PCR and CD4 ordered Leroy Ny MD, FACP [facility] O: [phone] F: [phone]
[2020-09-12] MEDS: hydrALAZINE 20 MG/1 ML INJ IV PRN (15:26)
[2020-09-13] MEDS: hydrALAZINE 20 MG/1 ML INJ IV PRN (00:26)
--- NOTE | 2020-09-13 09:44 | Progress Note ---
Assessment and Plan Assessment: * End stage renal disease * Uremia * Accelerated hypertension * Anemia secondary to ESRD, symptomatic * Metabolic acidosis * HIV Plan: * Lengthy discussion with patient today. AM labs are pending at time of visit, so Sep 8 labs reviewed with patient. Patient advised of poor renal function and need to start HD. Patient replied that he needs to "process it" right now. 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 Reports [facility]. Objective - Vital Signs Vital signs: Vital Signs - 12hr 09/12/20 09/12/20 09/13/20 22:00 22:13 00:26 Temperature 98.7 F Pulse Rate 92 H 102 H Respiratory 18 Rate Blood Pressure 155/105 155/105 O2 Sat by Pulse 99 95 Oximetry 09/13/20 09/13/20 09/13/20 01:30 01:45 01:52 Temperature 98.2 F 98.1 F Pulse Rate 92 H 95 H Respiratory 18 20 18 Rate Blood Pressure 147/92 158/94 O2 Sat by Pulse 100 100 Oximetry 09/13/20 09/13/20 09/13/20 02:15 02:45 02:52 Temperature 98.2 F 98.3 F Pulse Rate 98 H 90 Respiratory 20 20 18 Rate Blood Pressure 158/99 150/93 O2 Sat by Pulse 97 99 Oximetry 09/13/20 09/13/20 09/13/20 03:15 03:45 04:15 Temperature 98.2 F 97.9 F 98.7 F Pulse Rate 92 H 91 H 88 Respiratory 20 20 20 Rate Blood Pressure 149/90 158/98 160/100 O2 Sat by Pulse 99 99 98 Oximetry 09/13/20 04:30 Temperature 98.6 F Pulse Rate 87 Respiratory 20 Rate Blood Pressure 159/99 O2 Sat by Pulse 98 Oximetry - General Appearance General appearance: well-developed, well-nourished EENT: ATNC Respiratory: Present: Other (faint bibasillar crackles) Cardiology: regular, S1S2 Gastrointestinal: normal, no tenderness, no distended Integumentary: no rash, warm and dry Neurologic: alert and oriented x3 Musculoskeletal: other (no edema) Psychiatric: cooperative - Lab 09/12/20 07:34 09/13/20 08:17 Most recent lab results Calcium 8.6 mg/dL (8.4-10.2) 09/12/20 07:34 Phosphorus 5.80 mg/dL (2.5-4.5) H 09/12/20 07:34 Urine Creatinine 123.7 mg/dL (0.1-20.0) H 09/12/20 03:30 Urine Total Protein 594 mg/dL (5-11.8) H 09/12/20 03:30 Medications & Allergies - Medications Allergies/Adverse Reactions: Allergies No Known Allergies Allergy (Verified 09/11/20 11:14) Home Medications: Home Medications Medication Instructions Recorded Confirmed Last Taken Type Descovy 200-25 mg (Nf) 25 - 200 mg PO DAILY 09/12/20 09/12/20 Unknown History Tivicay 50 mg PO DAILY 09/12/20 09/12/20 Unknown History amLODIPine 10 mg PO DAILY 09/12/20 09/12/20 Unknown History Active Medications: Generic Name Dose Route Start Last Admin Trade Name Freq PRN Reason Stop Dose Admin Acetaminophen 650 mg 09/11/20 14:29 Tylenol PO Q4H PRN Pain MILD(1-3)/Fever >100.5/[facility] Amlodipine Besylate 10 mg 09/12/20 14:00 09/12/20 13:48 Amlodipine PO 10 mg QDAY MARIAM Administration Hydralazine HCl 5 mg 09/11/20 14:30 09/13/20 00:26 Apresoline IV 5 mg Q30MIN PRN Administration Hypertension Ondansetron HCl 4 mg 09/11/20 14:29 Zofran IV Q8H PRN Nausea And Vomiting Oxycodone/Acetaminophen 1 tab 09/11/20 14:29 09/13/20 01:52 Percocet 5/325 PO 1 tab Q6H PRN Administration Pain, Moderate (4-6) Pantoprazole Sodium 40 mg 09/13/20 10:00 Protonix PO BID MARIAM Sevelamer Carbonate 2,400 mg 09/12/20 14:00 09/12/20 21:05 Renvela PO 2,400 mg TID MARIAM Administration Sodium Chloride 10 ml 09/11/20 15:00 09/12/20 22:15 Sodium Chloride Flush Syringe 10 Ml IV 10 ml BID MARIAM Administration Sodium Chloride 10 ml 09/11/20 14:29 Sodium Chloride Flush Syringe 10 Ml IV PRN PRN LINE FLUSH Sodium Polystyrene Sulfonate 15 gm 09/11/20 14:30 Kionex PO Q6HR PRN Hyperkalemia
[2020-09-13 10:00] LABS: Calcium 8.6 mg/dL (8.4-10.2)
[2020-09-13] MEDS ORDERED: PANTOPRAZOLE 40 MG TAB PO SCH (10:00)
[2020-09-13] MEDS: SEVELAMER CARBONATE 800 MG TAB PO SCH (10:16)
[2020-09-13] MEDS: amLODIPine 10 MG TAB PO SCH (10:18)
[2020-09-13 10:28] VITALS: BP 158/105
[2020-09-13] MEDS ORDERED: SODIUM POLYSTYRENE 15 GM/60 ML ORAL LIQD PO NR (10:45)
--- NOTE | 2020-09-13 11:55 | Progress Note ---
Assessment and Plan Cultures: 09/11/2020 blood culture: No growth COVID-19 PCR: Negative A/P: 35-year-old male with CKD, HIV, hypertension : #HIV: patient was diagnosed about 2 years ago and started treatment with Descovy + dolutegravir at [place], was very compliant with treatment but does not remember his last viral load or CD4 count. In June 2020, patient lost his job and his insurance and hence has not been taking any of his meds. He was not aware of any of the free clinic options. #RLL pneumonitis: ?asp pneumonitis from vomiting. No fever or leucocytosis. #ESRD / progression of CKD: ?HIVAN. Proteinuria +. Nephrology following. Planned to initiate dialysis. Patient reports having CKD for at least >2 years. Given progression to ESRD, initiation of ART as inpatient unlikely to prevent need for dialysis. #Anemia: probablysecondary to ESRD Recs: -patient interested in following up with [facility] [place] to resume ART -Follow-up HIV PCR and CD4 ordered -Monitor off antibiotics Lynda Gaines MD [facility] ([facility]) Office [phone] Objective - Constitutional Vitals: Vital Signs Temp Pulse Resp BP Pulse Ox 98.6 F 87 20 158/105 98 09/13/20 04:30 09/13/20 04:30 09/13/20 04:30 09/13/20 10:18 09/13/20 04:30 Temperature -Last 24 Hours Temperature 98.6 F Temperature 98.7 F Temperature 97.9 F Temperature 98.2 F Temperature 98.3 F Temperature 98.2 F Temperature 98.1 F Temperature 98.2 F Temperature 98.7 F Temperature 98.2 F Temperature 97.6 F Temperature 97.3 F Temperature 97.3 F Temperature 97.5 F Temperature 97.5 F Temperature 98.2 F - Labs CBC & Chem 7: 09/12/20 07:34 09/13/20 08:17 Labs: Abnormal lab results 09/11/20 09/13/20 Range/Units 19:01 08:17 Sodium 132 L (137-145) mmol/L Potassium 5.7 H (3.6-5.0) mmol/L Chloride 93.3 L (98-107) mmol/L Carbon Dioxide 18 L (22-30) mmol/L BUN 100 H (9-20) mg/dL Creatinine 36.3 H (0.8-1.3) mg/dL Crossmatch See Detail
[2020-09-13] MEDS ORDERED: SEVELAMER CARBONATE 800 MG TAB PO SCH (12:00)
[2020-09-13] MEDS ORDERED: SODIUM BICARBONATE 650 MG TAB PO SCH (14:00)
--- NOTE | 2020-09-13 16:07 | Progress Note ---
Subjective Date of service: 09/13/20 Interval history: Patient left AMA Objective - Constitutional Vitals: Vital Signs Temp Pulse Resp BP Pulse Ox 98.6 F 87 20 158/105 98 09/13/20 04:30 09/13/20 04:30 09/13/20 04:30 09/13/20 10:18 09/13/20 04:30 Temperature -Last 24 Hours Temperature 98.6 F Temperature 98.7 F Temperature 97.9 F Temperature 98.2 F Temperature 98.3 F Temperature 98.2 F Temperature 98.1 F Temperature 98.2 F Temperature 98.7 F Temperature 98.2 F Temperature 97.6 F Temperature 97.3 F Temperature 97.3 F - Labs CBC & Chem 7: 09/12/20 07:34 09/13/20 08:17 Labs: Abnormal lab results 09/11/20 09/13/20 Range/Units 19:01 08:17 Sodium 132 L (137-145) mmol/L Potassium 5.7 H (3.6-5.0) mmol/L Chloride 93.3 L (98-107) mmol/L Carbon Dioxide 18 L (22-30) mmol/L BUN 100 H (9-20) mg/dL Creatinine 36.3 H (0.8-1.3) mg/dL Crossmatch See Detail
[2020-09-15 15:42] LABS: CD4/CD8 Ratio 0.07 (0.86-5.00)
[2020-09-15 23:29] LABS: Albumin 3.8 g/dL (3.8-4.8); Gamma Globulin 1.9 g/dL (0.8-1.7)
[2020-09-16 00:21] LABS: ANA Screen, IFA Negative (Negative)
== END 2020-09-13 11:15 | disposition left against medical advice (07) | DRG 682 ==
LOC: ED 08:44 → 3A 12:30
PROVIDERS: ADMIT Internal Medicine; ATTEND Internal Medicine
PROC: 30233N1 Transfusion of Nonautologous Red Blood Cells into Peripheral Vein, Percutaneous Approach (ICD-10-PCS; principal; 2020-09-12)
DX: N17.9 Acute kidney failure, unspecified (principal); J18.9 Pneumonia, unspecified organism; E87.2 Acidosis; I12.0 Hypertensive chronic kidney disease with stage 5 chronic kidney disease or end stage renal disease; N18.6 End stage renal disease; N25.81 Secondary hyperparathyroidism of renal origin; E87.5 Hyperkalemia; F17.200 Nicotine dependence, unspecified, uncomplicated; Z21 Asymptomatic human immunodeficiency virus [HIV] infection status; Z20.828 Contact with and (suspected) exposure to other viral communicable diseases; D63.1 Anemia in chronic kidney disease; Z53.29 Procedure and treatment not carried out because of patient's decision for other reasons
CPT/HCPCS: 36415; 71046; 74176; 76770; 80048; 80053; 81001; 82024; 82570; 82728; 82947; 83615; 83690; 83970; 84100; 84132; 84145; 84156; 84165; 85025; 85379; 86021; 86038; 86140; 86160; 86850; 86900; 86901; 86920; 87040; 87536; 93005; G0378; C9113; J0360; J0456; J0696; J1170; J1815; J2405; J7040; J7050; P9016; U0003